=== PATIENT | female | born 1995 | race Caucasian/White ===

== ENCOUNTER 2021-02-15 22:38 | Emergency (ER) | payer OTHER ==
[~2021-02-15] VITALS: Ht 162.6 cm; Wt 68.0 kg
[2021-02-15] MEDS ORDERED: PROAIR HFA8.5 GM INH (23:28)
[2021-02-15] MEDS ORDERED: PREDNISONE50 MG PO (23:28)
[2021-02-15 23:41] VITALS: BP 162/100
== END 2021-02-15 23:42 | disposition home or self-care (01) ==
LOC: M.ERS 22:38
DX: J06.9 Acute upper respiratory infection, unspecified (principal); Z20.822 Contact with and (suspected) exposure to COVID-19; F17.210 Nicotine dependence, cigarettes, uncomplicated

== ENCOUNTER 2021-09-21 20:14 | Emergency (ER) | payer OTHER ==
[~2021-09-21] VITALS: Ht 165.1 cm; Wt 68.0 kg
[~2021-09-21 20:14] MED LIST: PREDNISONE50 MG PO; PROAIR HFA8.5 GM INH
[2021-09-21] MEDS ORDERED: CARAFATE1 GM PO (23:44)
[2021-09-21] MEDS ORDERED: OMEPRAZOLE40 MG PO (23:44)
[2021-09-22 00:06] LABS: ABSOLUTE EOSINOPHILS 0.1 thou/uL (0.0-0.7); ABSOLUTE MONOCYTES 0.5 thou/uL (0.0-1.2); ABSOLUTE NEUTROPHILS 2.8 thou/uL (1.6-8.1); BASOPHILS 0.4 %; EOSINOPHILS 1.9 %; HEMATOCRIT 43.2 % (37.0-47.0); HEMOGLOBIN 14.1 gm/dL (12.0-15.0); LYMPHOCYTES 46.3 %; MCH 29.6 pg (26.0-34.0); MCHC 32.5 g/dL (28.0-37.0); MCV 90.9 fL (80.0-100.0); MONOCYTES 7.7 %; MPV 10.2 fl. (7.2-11.1); NUCLEATED RBCS 0 /100WBC; POLYS 43.7 %; RBC 4.75 mil/uL (4.20-5.00); RDW-CV 13.7 % (10.5-14.5); WBC 6.5 thou/uL (4.0-11.0)
[2021-09-22 00:35] LABS: CALCIUM 9.3 mg/dL (8.5-10.1); CREATININE 0.7 mg/dL (0.6-1.3)
[2021-09-22 00:37] LABS: POTASSIUM 5.1 mmol/L (3.5-5.1)
[2021-09-22 00:39] LABS: ALBUMIN 3.8 g/dL (3.4-5.0); TOTAL BILIRUBIN 0.5 mg/dL (<0.1-1.0); TOTAL PROTEIN 7.2 g/dL (6.4-8.2)
[2021-09-22 01:07] LABS: URINE BILIRUBIN NEGATIVE (Negative); URINE BLOOD NEGATIVE (Negative); URINE CLARITY CLEAR; URINE COLOR YELLOW; URINE GLUCOSE-RANDOM NEGATIVE (Negative); URINE KETONES TRACE (Negative); URINE LEUKOCYTES-REFLEX NEGATIVE (Negative); URINE NITRITE-REFLEX NEGATIVE (Negative); URINE PROTEIN NEGATIVE (Negative); URINE SPECIFIC GRAVITY 1.025 (1.005-1.030); URINE UROBILINOGEN 0.2 E.U./dl (0.2-1.0)
[2021-09-22 01:10] LABS: AMP/METHAMP Negative (Negative); BARBITURATES Negative (Negative); BENZODIAZEPINES Negative (Negative); COCAINE Negative (Negative); METHADONE Negative (Negative); OPIATES Negative (Negative); PCP Negative (Negative); THC Negative (Negative)
[2021-09-22 01:16] LABS: PLATELET COUNT* 47 thou/uL (150-400)
[2021-09-22 01:31] VITALS: BP 122/74
--- NOTE | 2021-09-22 12:12 | EKG ---
[place] [address] ELECTROCARDIOGRAM REPORT Name: ESPERANZA GUNTER Room: [facility]#: [id number] Admission: 09/21/21 Attend Phys: Discharge: 09/22/21 Date of : 89 Date of Service: 09/21/212023 Report #: [id number] THIS REPORT FOR: //name// [facility] ED Test Date: 2021-09-21 Test Time: 20:24:43 Pat Name: ESPERANZA GUNTER Department: Room: Gender: F Process Automation Engineer: : [id number] Requested By: Brenda Leary Order Number: [id number] MD: Benson Zaldivar Measurements Intervals [place] Rate: 80 P: 58 W[place]: 151 QRS: 38 QRSD: 77 T: 39 QT: 355 QTc: 410 Interpretive Statements Sinus rhythm No previous ECG available for comparison Electronically Signed On 09-22-2021 12:12:01 VIDEO GAME TECHNICIAN by Benson Zaldivar [email or web address] <ELECTRONICALLY SIGNED> By: Benson Zaldivar MD, [facility] 09/22/212 23 23 Benson Zaldivar MD, FACC /EPI
== END 2021-09-22 01:31 | disposition home or self-care (01) ==
LOC: M.ERS 20:14
PROVIDERS: Personal Emergency Response Attendant
DX: K22.4 Dyskinesia of esophagus (principal); K21.9 Gastro-esophageal reflux disease without esophagitis; D69.6 Thrombocytopenia, unspecified